=== PATIENT | male | born 1950 | race Caucasian/White ===

== ENCOUNTER 2024-07-05 09:08 | Outpatient (OUT) | payer MEDICARE, SELFPAY ==
--- NOTE | 2024-07-05 | XR_ITS ---
The [address] [address] Patient Name: DEE DEE CYR MRN: [id number] date: 1950 Sex: M Assigned Patient Location: Current Patient Location: Accession/Order Number: [id number] Exam Date: 07/05/2024 09:10 Report Date: 07/05/2024 10:22 At the request of: MILADY MEHTA Procedure: XR foot JASON min 3V EXAMINATION: XR foot JASON min 3V HISTORY: BILATERAL FOOT PAIN COMPARISON: No relevant comparison available. FINDINGS: RIGHT FINDINGS: BONES: Pes planus. Moderate to severe degenerative changes most significant in the midfoot with joint space narrowing and marginal osteophyte formation. Moderate enthesopathic spurring of the calcaneus at the Achilles and plantar insertions SOFT TISSUES: Negative. No visible soft tissue swelling. OTHER: Negative. LEFT FINDINGS: BONES: Pes planus. Moderate to severe degenerative changes most significant in the midfoot with joint space narrowing and marginal osteophyte formation. Moderate enthesopathic spurring of the calcaneus at the Achilles and plantar insertions SOFT TISSUES: Negative. No visible soft tissue swelling. OTHER: Negative. XR/XR foot JASON min 3V IMPRESSION: Moderate to severe degenerative changes with pes planus, left greater than right Electronically authenticated by: EDGARD ARANGO Date: 07/05/2024 10:22
== END 2024-07-05 09:09 | disposition home or self-care (01) ==
PROVIDERS: PCP Family Medicine; Visit Provider Podiatrist Foot & Ankle Surgery
DX: M79.672 Pain in left foot (principal); M79.671 Pain in right foot; M21.42 Flat foot [pes planus] (acquired), left foot; M21.41 Flat foot [pes planus] (acquired), right foot
CPT/HCPCS: 73630